=== PATIENT | female | born 1955 | race Caucasian/White ===

== ENCOUNTER → 2016-06-12 | Outpatient (REF) | payer BC ==
[2016-06-12 17:49] LABS: INR 0.92
== END ==
LOC: M LAB REF 16:35
PROVIDERS: ATTEND Internal Medicine Medical Oncology
DX: C50.919 Malignant neoplasm of unspecified site of unspecified female breast (principal)

== ENCOUNTER → 2016-06-22 | Outpatient (CLI) | payer BC ==
[~2016-06-22] MED LIST: LIDOCAINE 1% MDV 20ML VIAL As Ordered ONE
--- NOTE | 2016-06-22 12:33 | REP ---
SOFT-TISSUE ULTRASOUND RIGHT DELTOID REGION: HISTORY: Prebiopsy scan. Soft tissue mass right deltoid region. Comparison is made with CT study from June 06, 2016 in an outside facility. 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 FINDINGS: Prebiopsy sonographic visualization of the right deltoid muscle reveals hyperechoic tissue within the deltoid muscle compatible with the CT findings. Sonographic targeting will be used for needle biopsy sampling. Signed by Raz Paz MD 06/22/2016 04:45 P
--- NOTE | 2016-06-22 15:19 | REP ---
ULTRASOUND GUIDED RIGHT DELTOID MASS BIOPSY: The procedure was performed under the direct supervision of Dr. Paz. The right deltoid mass was localized using ultrasound guidance. The skin was prepped and draped in a sterile fashion. 1% Xylocaine was used as a local anesthetic. Using ultrasound guidance, a 19/20-gauge coaxial needle biopsy system was inserted and advanced into the mass. Six core biopsy samples were obtained and sent to the lab. The patient tolerated the procedure well and there were no immediate complications. After the appropriate amount of monitored convalescence, the patient was discharged from the department. Reviewed by JI Bethea 06/22/2016 03:34 PEdited and Signed by Raz Paz MD 06/22/2016 05:00 P
== END ==
LOC: M RADPRO 09:13
PROVIDERS: ATTEND Internal Medicine Medical Oncology
DX: D17.9 Benign lipomatous neoplasm, unspecified (principal); C79.89 Secondary malignant neoplasm of other specified sites; Z85.3 Personal history of malignant neoplasm of breast; Z85.820 Personal history of malignant melanoma of skin; Z85.828 Personal history of other malignant neoplasm of skin

== ENCOUNTER → 2019-09-18 | Outpatient (CLI) | payer BC ==
[~2019-09-18] MED LIST changes: +CALC600T60 PO; +FURO40TA2 PO; +LEXA1TAB2 PO; -LIDOCAINE 1% MDV 20ML VIAL As Ordered ONE; +LOPR1TAB6 PO; +MULTCAP PO; +PROBCAP17 PO; +SPIR-10 PO
[2019-09-18 18:16] LABS: BASO % 0.6 % (0.0-1.0); EOS # 0.1 10^3/uL (0.0-0.5); HEMATOCRIT 38.2 % (36.0-47.0); HEMOGLOBIN 13.2 g/dl (12.0-15.5); LYMPH # 1.3 10^3/uL (1.5-5.0); LYMPH % 25.8 % (24.0-44.0); MEAN CORPUSCULAR HGB CONC 34.6 g/dl (32.0-36.5); MEAN CORPUSCULAR VOLUME 92.5 fl (80.0-96.0); MONO # 0.5 10^3/uL (0.0-0.8); MONO % 9.2 % (0.0-5.0); NEUTROPHILS # 3.1 10^3/uL (1.5-8.5); PLATELET COUNT, AUTOMATED 204 10^3/uL (150-450); RED BLOOD COUNT 4.13 10^6/uL (4.00-5.40); WHITE BLOOD COUNT 4.9 10^3/uL (4.0-10.0)
[2019-09-18 18:25] LABS: ALBUMIN 3.8 GM/DL (3.2-5.2); ALT/SGPT 44 U/L (12-78); BILIRUBIN,TOTAL 0.6 MG/DL (0.2-1.0); BLOOD UREA NITROGEN 18 MG/DL (7-18); CARBON DIOXIDE LEVEL 30 MEQ/L (21-32); CHLORIDE LEVEL 105 MEQ/L (98-107); CHOLESTEROL LEVEL 298 MG/DL (<200); CREATININE FOR GFR 0.84 MG/DL (0.55-1.30); FERRITIN 214 NG/ML (8-252); GLOMERULAR FILTRATION RATE > 60.0 (>45); GLUCOSE, FASTING 167 MG/DL (70-100); HDL CHOLESTEROL 50 MG/DL (>40); IRON (FE) 105 UG/DL (50-170); LDH LACTATE DEHYDROGENASE 243 U/L (84-246); LDL CHOLESTEROL 188 MG/DL (<100); NON-HDL-C 248 MG/DL; POTASSIUM SERUM 4.1 MEQ/L (3.5-5.1); SODIUM LEVEL 140 MEQ/L (136-145); TOTAL IRON BINDING CAPACITY 300 UG/DL (250-450); TOTAL PROTEIN 6.8 GM/DL (6.4-8.2); TRIGLYCERIDES LEVEL 301 MG/DL (<150)
[2019-09-18 18:32] LABS: VITAMIN B12 LEVEL 389 PG/ML
[2019-09-18 18:33] LABS: FOLATE 23.5 NG/ML
[2019-09-22 15:37] LABS: ALBUMIN % 64.7 % (55.8-66.1); ALPHA-1-GLOBULIN % 3.8 % (2.9-4.9); ALPHA-1-GLOBULINS 0.26 GM/DL (0.17-0.41); ALPHA-2-GLOBULINS 0.59 GM/DL (0.42-0.99); ALPHA-2-GLOBULINS % 8.7 % (7.1-11.8); BETA-1-GLOBULINS 0.46 GM/DL (0.28-0.60); BETA-1-GLOBULINS % 6.7 % (4.7-7.2); BETA-2-GLOBULINS 0.41 GM/DL (0.19-0.55); GAMMA GLOBULIN % 10.1 % (11.1-18.8); GAMMA GLOBULINS 0.69 GM/DL (0.65-1.58)
[2019-09-24 20:07] LABS: FREE KAPPA LIGHT CHAINS SERUM 10.7 mg/L (3.3-19.4); HOMOCYST(E)INE SERUM 10.6 umol/L (0.0-17.2); KAPPA/LAMBDA RATIO SERUM 1.07 (0.26-1.65)
== END ==
LOC: M LAB 12:49
PROVIDERS: ATTEND Internal Medicine Hematology & Oncology
DX: C50.919 Malignant neoplasm of unspecified site of unspecified female breast (principal)

== ENCOUNTER → 2020-10-03 | Outpatient (CLI) | payer BC ==
[~2020-10-03] MED LIST changes: +COVI100V IM; +D31000TA2 PO; +MULT-90 PO; +PROHANCE 279.3MG/ML 15ML VIAL As Ordered ONE; +VITA100065 PO
--- NOTE | 2020-10-03 16:31 | REP ---
INDICATION: RCA MUTATION. COMPARISON: CT chest 07/21/2009. TECHNIQUE: Multiple sequences obtained in the axial and coronal planes prior to and following the intravenous administration of 15 cc ProHance. Images are centered at the pancreas. FINDINGS: The visualized liver and spleen demonstrate no abnormality. The adrenal glands are normal. No pancreatic mass or cyst is seen. There is no pancreatic duct dilatation. The kidneys demonstrate no mass or hydronephrosis. The gallbladder is unremarkable. There is no biliary dilatation. No adenopathy or free fluid is seen in the abdomen. IMPRESSION: Negative MRI of the abdomen with special attention paid to the pancreas. <Electronically signed by Miguel A Burnette > 10/03/20 [id number]
== END ==
LOC: M RAD 14:21
PROVIDERS: ATTEND Internal Medicine Medical Oncology
DX: C50.919 Malignant neoplasm of unspecified site of unspecified female breast (principal)

== ENCOUNTER 2020-10-18 12:00 | Outpatient (RCR) | payer BC ==
[~2020-10-18 12:00] MED LIST changes: -PROHANCE 279.3MG/ML 15ML VIAL As Ordered ONE
== END 2020-10-19 ==
LOC: M PT 12:00
PROVIDERS: ATTEND Nurse Practitioner Family
DX: I89.0 Lymphedema, not elsewhere classified (principal)

== ENCOUNTER 2020-10-25 14:03 | Outpatient (RCR) | payer BC | END 2020-11-19 | LOC: M PT 14:03 | PROVIDERS: ATTEND Nurse Practitioner Family | DX: I97.2 Postmastectomy lymphedema syndrome (principal) ==

== ENCOUNTER → 2020-10-27 | Outpatient (CLI) | payer BC ==
--- NOTE | 2020-10-27 14:54 | REP ---
INDICATION: RT SHOULDER PAIN. COMPARISON: None. TECHNIQUE/RADIOTRACER AND DOSE: Following the intravenous administration of 21.3mCi technetium 99 M MDP, patient's whole-body is imaged in multiple projections. FINDINGS: There is homogeneous radiotracer distribution throughout the axial and appendicular skeleton. No abnormal osseous uptake is seen. There is no scintigraphic evidence of osseous metastases. Renal and bladder activity are seen. IMPRESSION: Negative whole body bone scan. <Electronically signed by Miguel A Burnette > 10/27/20 [id number]
== END ==
LOC: M RAD 11:03
PROVIDERS: ATTEND Internal Medicine Medical Oncology
DX: M25.511 Pain in right shoulder (principal)

== ENCOUNTER → 2020-12-02 | Outpatient (CLI) | payer BC ==
[~2020-12-02] MED LIST changes: +TRUL10IN SQ
--- NOTE | 2020-12-02 14:48 | REP ---
INDICATION: LYMPHADENOPATHY. COMPARISON: None. TECHNIQUE: Real-time sonographic evaluation of the left axilla to assess for lymphadenopathy. FINDINGS: Seen in the left axilla there is a single peripherally hypoechoic centrally echogenic solid nodule which measures 1.4 x 1 x 1 cm. This is consistent with a lymph node. IMPRESSION: Lymph node <Electronically signed by Kenny Jeter > 12/02/20 [id number]
== END ==
LOC: M RAD 14:02
PROVIDERS: ATTEND Internal Medicine Medical Oncology
DX: I89.0 Lymphedema, not elsewhere classified (principal)

== ENCOUNTER → 2020-12-16 | Outpatient (CLI) | payer BC ==
[~2020-12-16] MED LIST changes: +ACET325C5 PO
== END ==
LOC: M PLALAB 09:38
PROVIDERS: ATTEND Surgery
DX: Z13.79 Encounter for other screening for genetic and chromosomal anomalies (principal)

== ENCOUNTER → 2020-12-28 | Outpatient (CLI) | payer BC ==
[2020-12-28 08:48] VITALS: BP 130/84
--- NOTE | 2020-12-31 18:04 | ROOPDOC ---
[facility] Report Of Operation Report of Operation DATE OF PROCEDURE: 12/28/20 DIAGNOSIS: Left abnormal axillary lymph node PROCEDURE: Ultrasound guided left abnormal axillary lymph node biopsy with clip placement SURGEON: Carmen Naidu BLOOD LOSS: minimal COMPLICATIONS: none Lidocaine 1% LOT [id number] Expiration 05/2024 Sodium Bicarbonate 8.4% LOT [id number] Expiration 05/2021 Hydromark clip LOT [id number] Expiration 10/2023 SHAPE 3 Bx device: TEMNO 18G x 20 cm LOT [id number] Expiration 05/2023 Informed consent was obtained. The most common risk and possible complications including bleeding, hematoma, bruising, infection, injury to surrounding structures were explained to the patient and the patient expressed und erstanding. Patient was placed on the bed in the supine position. Appropriate time out was done stating patients name, date of , and the procedure to be performed. The left axilla was prepped and draped in the usual fashion. The ultrasound was used to confirm the location of enlarged lymph node with cortex measuring 4 mm. Plain Lidocaine 1% and 8.4% sodium bicarbonate 10:1 mix was used to anesthetize the skin, the biopsy site and tissues along the anticipated biopsy tract. Small skin incision was made with blade number 11. Temno 18G cannula with introducer was inserted through the incision and advanced under the ultrasound guidance to position immediately adjacent to the enlarged lymph node with 4 mm cortex. Next, the introducer was removed and Temno 18G biopsy device was places in the cannula. Pre-biopsy imaging, and post-biopsy imaging were captured. Five good core biopsies were taken at various levels of the lesion. Specimen was placed in formaldehyde, labeled with appropriate biopsy site and patients name, and sent to pathology for evaluation. Next, the biopsy device and cannula were withdrawn and a clip introducer was inserted into the position immediately adjacent to the biopsied lymph node. The SHAPE 3 Hydromark clip was deployed under sonographic guidance. Post-clip placement image was captured. Manual pressure over the biopsy cavity and tract was held after the clip introducer was withdrawn. No bleeding was noted upon removal of the pressure. No postbiopsy left mammogram was done due to very low likelihood of clip being seen on imaging. Postprocedural dressing was placed. Patient tolerated procedure well. Discharge instructions were discussed with the patient and the patient expressed understanding. CARMEN NAIDU DO Dec 31, 2020 18:04
== END ==
LOC: M WHCPRO 07:01
PROVIDERS: ATTEND Surgery
DX: R59.0 Localized enlarged lymph nodes (principal)

== ENCOUNTER → 2021-03-14 | Outpatient (CLI) | payer BC ==
--- NOTE | 2021-03-14 13:02 | REP ---
INDICATION: 2ND LOOK, AXILLARY ADENOPATHY COMPARE TO CT SCAN. COMPARISON: Ultrasound 12/02/2020, CT 02/21/2021, 11/01/2020. TECHNIQUE: Real-time sonographic evaluation of left axilla performed. FINDINGS: There is a lymph node containing a biopsy clip, measuring approximately 1.8 x 1.0 x 1.1 cm. Inferior to that a small nodule measures 6 x 5 x 6 mm. The deeper lymph node described on the recent CT scan of 02/21/2021, located on image 24, could not be visualized sonographically, likely due to multiple overlying surgical clips. IMPRESSION: There is a lymph node containing a biopsy clip, measuring approximately 1.8 x 1.0 x 1.1 cm. Inferior to that a small nodule measures 6 x 5 x 6 mm. The deeper lymph node described on the recent CT scan of 02/21/2021, located on image 24, could not be visualized sonographically, likely due to multiple overlying surgical clips. <Electronically signed by iMguel A Burnette > 03/14/21 [id number]
== END ==
LOC: M RAD 10:27
PROVIDERS: ATTEND Surgery
DX: R59.0 Localized enlarged lymph nodes (principal)

== ENCOUNTER → 2021-04-24 | Outpatient (CLI) | payer BC ==
[~2021-04-24] MED LIST changes: +AMOX875T PO
== END ==
LOC: M LABSMTC 12:53
PROVIDERS: ATTEND Anesthesiology
DX: Z01.818 Encounter for other preprocedural examination (principal); Z11.52 Encounter for screening for COVID-19

== ENCOUNTER → 2021-04-28 | Outpatient (CLI) | payer BC | LOC: M LABSMTC 13:04 | PROVIDERS: ATTEND Anesthesiology | DX: Z01.812 Encounter for preprocedural laboratory examination (principal); Z20.822 Contact with and (suspected) exposure to COVID-19 ==

== ENCOUNTER 2021-05-11 12:46 | Outpatient (RCR) | payer BC ==
[2021-05-22] MEDS ORDERED: OMEP-173 PO (14:23)
== END 2021-05-22 ==
LOC: M PT 12:46
PROVIDERS: ATTEND Nurse Practitioner Family
DX: I97.2 Postmastectomy lymphedema syndrome (principal)

== ENCOUNTER → 2021-05-20 | Outpatient (CLI) | payer BC ==
[~2021-05-20] MED LIST changes: +OMEP-173 PO
== END ==
LOC: M LABSMTC 11:09
PROVIDERS: ATTEND Anesthesiology
DX: Z01.812 Encounter for preprocedural laboratory examination (principal); Z20.822 Contact with and (suspected) exposure to COVID-19

== ENCOUNTER 2021-05-25 06:08 | Day surgery (SDC) | payer BC ==
[~2021-05-25] VITALS: Ht 162.6 cm; Wt 78.0 kg
[2021-05-25] MEDS: HEPARIN SOD (PORCINE) 5000UNITS/ML 1ML VIAL/SYRINGE SQ SCH ×2 (06:00→07:49)
[2021-05-25] MEDS: ceFAZolin SOD 2 GM in IV 1 EA IV SCH ×2 (06:00→07:38)
[~2021-05-25 06:08] MED LIST changes: +HEPARIN SOD (PORCINE) 5000UNITS/ML 1ML VIAL/SYRINGE SQ ONE; +LIDOCAINE 1% MDV 20ML VIAL SQ PRN; +LR 1,000 ML IV ONE; +LR 1,000 ML IV SCH; +NS 1,000 ML IV SCH; +ceFAZolin SOD 2 GM in IV 1 EA IV ONE
[2021-05-25] MEDS ORDERED: BUPIVACAINE HCL 0.25% 30ML VIAL As Ordered ONE (07:10)
[2021-05-25] MEDS ORDERED: LIDOCAINE 1% SDV 30ML VIAL As Ordered ONE (07:10)
[2021-05-25] MEDS ORDERED: dexameTHASONE 4 MG/ML 1ML VIAL (J1100 PER 1MG) As Ordered ONE (07:16)
[2021-05-25] MEDS ORDERED: fentaNYL 100 MCG/2 ML INJECTION As Ordered ONE (07:16)
[2021-05-25] MEDS ORDERED: propofoL 200 MG/20 ML VIAL As Ordered ONE (07:16)
[2021-05-25] MEDS ORDERED: MIDAZOLAM INJ 2MG/2ML VIAL (J2250 PER 1MG) As Ordered ONE (07:16)
[2021-05-25] MEDS ORDERED: LIDOCAINE 2% 100MG/5ML SDV (FOR ANES.) As Ordered ONE (07:16)
[2021-05-25] MEDS ORDERED: ONDANSETRON 4MG/2ML VIAL As Ordered ONE (07:16)
[2021-05-25] MEDS ORDERED: KETOROLAC 60MG 2ML VIAL As Ordered ONE (07:16)
[2021-05-25] MEDS ORDERED: ACETAMINOPHEN 1000MG 100ML IV BTL (OFIRMEV) (J0131 PER 10MG) As Ordered ONE (07:16)
[2021-05-25] MEDS ORDERED: METOCLOPRAMIDE INJ 10MG/2ML VIAL (J2765 PER 1) As Ordered ONE (07:16)
[2021-05-25] MEDS ORDERED: ROCURONIUM BROMIDE 50 MG/5 ML VIAL As Ordered ONE (07:16)
[2021-05-25] MEDS ORDERED: ROXI1TAB2 PO (09:54)
[2021-05-25] MEDS ORDERED: ONDANSETRON 4MG/2ML VIAL IV PRN (10:15)
[2021-05-25] MEDS ORDERED: LR 1,000 ML IV SCH (10:15)
[2021-05-25] MEDS ORDERED: oxyCODONE 5MG TAB PO PRN (10:15)
[2021-05-25] MEDS ORDERED: MEPERIDINE INJ 25 MG/ML VIAL (J2175) IV PRN (10:15)
[2021-05-25] MEDS ORDERED: fentaNYL 100 MCG/2 ML INJECTION IV PRN (10:15)
[2021-05-25 11:18] VITALS: BP 148/68
== END 2021-05-25 12:18 | disposition home or self-care (01) ==
LOC: M SDC 06:08
PROVIDERS: ATTEND Surgery
DX: R59.0 Localized enlarged lymph nodes (principal); I10 Essential (primary) hypertension; E11.9 Type 2 diabetes mellitus without complications; R91.8 Other nonspecific abnormal finding of lung field; Z85.3 Personal history of malignant neoplasm of breast; Z92.21 Personal history of antineoplastic chemotherapy; I50.9 Heart failure, unspecified; Z88.8 Allergy status to other drugs, medicaments and biological substances; Z79.899 Other long term (current) drug therapy; Z79.84 Long term (current) use of oral hypoglycemic drugs
CPT/HCPCS: 19285; 19286; 36415; 38525; 86850; 86900; 86901; 88307; J0131; J0690; J1100; J1644; J1885; J2250; J2405; J2765; J3010

== ENCOUNTER → 2021-11-13 | Outpatient (CLI) | payer BC ==
[~2021-11-13] MED LIST changes: -D31000TA2 PO; -HEPARIN SOD (PORCINE) 5000UNITS/ML 1ML VIAL/SYRINGE SQ ONE; -LIDOCAINE 1% MDV 20ML VIAL SQ PRN; -LR 1,000 ML IV ONE; -LR 1,000 ML IV SCH; -NS 1,000 ML IV SCH; +ROXI1TAB2 PO; +VITA100093 PO; -ceFAZolin SOD 2 GM in IV 1 EA IV ONE
== END ==
LOC: M WHC 10:37
PROVIDERS: ATTEND Nurse Practitioner Women's Health
DX: Z98.890 Other specified postprocedural states (principal); R59.0 Localized enlarged lymph nodes

== ENCOUNTER → 2022-02-27 | Outpatient (CLI) | payer BC ==
[~2022-02-27] MED LIST changes: +JARD1TAB3; +PROHANCE 279.3MG/ML 5ML VIAL As Ordered ONE
== END ==
LOC: M RAD 12:27
PROVIDERS: ATTEND Internal Medicine Medical Oncology
DX: Z15.01 Genetic susceptibility to malignant neoplasm of breast (principal); Z15.09 Genetic susceptibility to other malignant neoplasm

== ENCOUNTER → 2023-03-04 | Outpatient (CLI) | payer BC ==
[~2023-03-04] MED LIST changes: -JARD1TAB3; +JARD1TAB3 PO; +PROHANCE 279.3MG/ML 15ML VIAL As Ordered ONE; -PROHANCE 279.3MG/ML 5ML VIAL As Ordered ONE
== END ==
LOC: M RAD 14:44
PROVIDERS: ATTEND Internal Medicine Medical Oncology
DX: K86.89 Other specified diseases of pancreas (principal)
CPT/HCPCS: 74183; A9576

== ENCOUNTER → 2023-08-30 | Outpatient (CLI) | payer BC ==
[~2023-08-30] MED LIST changes: +AZEL1SPR3 INH; -PROHANCE 279.3MG/ML 15ML VIAL As Ordered ONE; +REPA140I2 SQ
== END ==
LOC: M RAD 09:03
PROVIDERS: ATTEND Internal Medicine Medical Oncology
DX: R16.1 Splenomegaly, not elsewhere classified (principal)